=== PATIENT | female | born 2000 | race Hispanic/Latino ===

== ENCOUNTER 2024-07-21 12:25 | Emergency (ER) | payer BC, OTHER ==
[2024-07-21] MEDS ORDERED: IBUPROFEN 200 MG TAB PO ONE (12:49)
[2024-07-21] MEDS ORDERED: IBUPROFEN 400 MG TAB ONE (12:50)
--- NOTE | 2024-07-21 13:14 | RAD REPORT ---
EXAM: Chest Single View HISTORY: COUGH COMPARISON: None. FINDINGS: LUNGS/PLEURA: The lungs are clear. No pleural effusions or pneumothorax. No pulmonary edema. MEDIASTINUM: The mediastinal silhouette is within normal limits. CARDIAC: The cardiac silhouette is within normal limits. UPPER ABDOMEN: No significant abnormality. BONES: No acute abnormality. LINES/TUBES/OTHER: N/A IMPRESSION: No evidence of acute cardiopulmonary disease.
[2024-07-21 13:20] LABS: SARS-CoV-2 Antigen CONTROL BLUE LINE VIS/BG OK
[2024-07-21 13:25] LABS: SARS-CoV-2 Antigen Rapid Res Positive (Negative)
--- NOTE | 2024-07-21 13:37 | EDPHYS ---
Physician Documentation [facility] Name: Vasiliy Alegre Age: 24 yrs Sex: Female : 2000 Arrival Date: 07/21/2024 Time: 12:25 Bed 10 Private MD: ED Physician Mera Reyes HPI: 07/21 13:14 This 24 yrs old Female presents to ER via Ambulatory with complaints of Fever, sp3 Cough, Flu Symptoms. 13:14 24-year-old female with no past medical history presents with chief complaint of fever, sp3 cough, congestion, body aches for 24 hours. Possible sick contact reported. She denies headache, neck pain, neck stiffness, chest pain, shortness of breath, [place] pain, vomiting, diarrhea, rash, syncope, near syncope, travel history, or any other signs or symptoms on ROS at this time.. Historical: - Allergies: 12:41 No Known Allergies; ll1 - Home Meds: 12:41 None [Active]; ll1 - PMHx: 12:41 None; ll1 - PSHx: 12:41 None; ll1 - Immunization history:: Adult Immunizations up to date. - Social history:: Smoking status: Patient denies any tobacco usage or history of. ROS: 13:15 Eyes: Negative for injury, pain, redness, and discharge, Neck: Negative for injury, sp3 pain, and swelling, Cardiovascular: Negative for chest pain, palpitations, and edema, Abdomen/GI: Negative for abdominal pain, nausea, vomiting, diarrhea, and constipation, Back: Negative for injury and pain, MS/Extremity: Negative for injury and deformity, Skin: Negative for injury, rash, and discoloration, Neuro: Negative for headache, weakness, numbness, tingling, and seizure, Psych: Negative for depression, anxiety, suicide ideation, homicidal ideation, and hallucinations, Allergy/Immunology: Negative for hives, rash, and allergies, Endocrine: Negative for neck swelling, polydipsia, polyuria, polyphagia, and marked weight changes, Hematologic/Lymphatic: Negative for swollen nodes, abnormal bleeding, and unusual bruising, 13:15 All other systems are negative, Exam: 13:15 Constitutional: This is a well developed, well nourished patient who is awake, alert, sp3 and in no acute distress. Head/Face: Normocephalic, atraumatic. Eyes: Pupils equal round and reactive to light, extra-ocular motions intact. Lids and lashes normal. Conjunctiva and sclera are non-icteric and not injected. Cornea within normal limits. Periorbital areas with no swelling, redness, or edema. Neck: Trachea midline, no thyromegaly or masses palpated, and no cervical lymphadenopathy. Supple, full range of motion without nuchal rigidity, or vertebral point tenderness. No Meningismus. Chest/axilla: Normal chest wall appearance and motion. Nontender with no deformity. No lesions are appreciated. Cardiovascular: Regular rate and rhythm with a normal S1 and S2. No gallops, murmurs, or rubs. Normal PMI, no JVD. No pulse deficits. Respiratory: Lungs have equal breath sounds bilaterally, clear to auscultation and percussion. No rales, rhonchi or wheezes noted. No increased work of breathing, no retractions or nasal flaring. Abdomen/GI: Soft, non-tender, with normal bowel sounds. No distension or tympany. No guarding or rebound. No evidence of tenderness throughout. Back: No spinal tenderness. No costovertebral tenderness. Full range of motion. MS/ Extremity: Pulses equal, no cyanosis. Neurovascular intact. Full, normal range of motion. Neuro: Awake and alert, GCS 15, oriented to person, place, time, and situation. Cranial nerves II-XII grossly intact. Motor strength 5/5 in all extremities. Sensory grossly intact. Cerebellar exam normal. Normal gait. Psych: Awake, alert, with orientation to person, place and time. Behavior, mood, and affect are within normal limits. 13:15 ENT: Rhinorrhea, mild erythema. Vital Signs: 12:39 BP 115 / 86; Pulse 92; Resp 17; Temp 97.3; Pulse Ox 97% ; Weight 83.01 kg; Height 5 ft. hb 0 in. ; Pain 4/10; 12:39 Body Mass Index 35.74 (83.01 kg, 152.4 cm) hb 12:39 Pain Scale: Adult hb MDM: 12:40 Medical Screening Exam initiated sp3 13:15 Data reviewed: vital signs, nurses notes, lab test result(s), radiologic studies. ED sp3 course: 24-year-old female with no PMH with URI symptoms. Differential diagnosis includes viral illness, COVID-19, influenza, strep pharyngitis, bronchitis, pneumonia, among others. I have entirely suspicious of cardiac rather etiology. Workup will include general swabs, ibuprofen, and chest x-ray. Disposition probable discharge on any indicated medications.. 13:35 ED course: Chest x-ray is negative. COVID-19 rapid test is positive. We will reassure sp3 and discharge patient home with general precautions.. 07/21 12:46 Order name: Flu; Complete Time: 13:35 sp3 07/21 12:46 Order name: SARS RAPID; Complete Time: 13:35 sp3 07/21 12:46 Order name: Strep sp3 07/21 13:29 Order name: Throat Culture EDMS 07/21 12:46 Order name: CXR XRAY; Complete Time: 13:16 sp3 Administered Medications: 13:01 Drug: Ibuprofen PO 600 mg PO once Route: PO; aa5 13:30 Follow up: Response: No adverse reaction aa5 Disposition Summary: 07/21/24 13:36 Discharge Ordered Notes: Location: Home sp3 Condition: Stable sp3 Diagnosis - COVID-19, viral illness sp3 Followup: sp3 - With: Private Physician - When: Upon discharge from the Emergency Department - Reason: Recheck today's complaints, Continuance of care Discharge Instructions: - Discharge Summary Sheet sp3 - COVID-19 sp3 Forms: - Work release form aa5 - Medication Reconciliation Form sp3 - Antibiotic Education sp3 - Prescription Opioid Use sp3 - Patient Portal Instructions sp3 - Leadership Thank You Letter sp3 Signatures: Dispatcher [employer] EDMS Aura Davila RN RN aa5 Octavio Dubois RN RN ll1 Mera Reyes MD MD sp3 Corrections: (The following items were deleted from the chart) 12:47 12:46 Influenza Screen (A \T\ B)+BA.LAB.BRZ ordered. EDMS EDMS 12:47 12:46 SARS-COV-2 Antigen Rapid+I.LAB.BRZ ordered. EDMS EDMS 12:47 12:46 Group A Streptococcus Rapid Sc+BA.LAB.BRZ ordered. EDMS EDMS
--- NOTE | 2024-07-21 13:37 | ER ---
Nurse's Notes [facility] Name: Vasiliy Alegre Age: 24 yrs Sex: Female : 2000 Arrival Date: 07/21/2024 Time: 12:25 Bed 10 Private MD: Diagnosis: COVID-19, viral illness Presentation: 07/21 12:39 Chief complaint:. Chief complaint: Patient states: Cough, fever, body aches, [place], sore ll1 throat, fatigue since yesterday morning. Coronavirus screen: Client denies travel out of the [place] in the last 14 days. congestion, cough unrelated to allergies, fatigue, fever, headache, Client presents with at least one sign or symptom that may indicate coronavirus-19. Standard/surgical mask placed on the client. Ebola Screen: Patient denies travel to an Ebola-affected area in the 21 days before illness onset. Initial Sepsis Screen: Does the patient meet any 2 criteria? No. Patient's initial sepsis screen is negative. Does the patient have a suspected source of infection? No. Patient's initial sepsis screen is negative. Risk Assessment: Do you want to hurt yourself or someone else? Patient reports no desire to harm self or others. Onset of symptoms was July 20, 2024. 12:39 Method Of Arrival: Ambulatory ll1 12:39 Acuity: NASREEN 4 ll1 Triage Assessment: 12:44 General: Appears uncomfortable, Behavior is calm, cooperative, appropriate for age. ll1 General: Reports chills for feeling ill for fatigue for. Pain: Complains of pain in throat Pain currently is 4 out of 10 on a pain scale. Quality of pain is described as aching. EENT: Reports pain when swallowing. Neuro: Reports headache. Respiratory: Reports cough that is. Historical: - Allergies: 12:41 No Known Allergies; ll1 - Home Meds: 12:41 None [Active]; ll1 - PMHx: 12:41 None; ll1 - PSHx: 12:41 None; ll1 - Immunization history:: Adult Immunizations up to date. - Social history:: Smoking status: Patient denies any tobacco usage or history of. Screenin:50 [facility] ED Fall Risk Assessment (Adult) History of falling in the last 3 months, aa5 including since admission No falls in past 3 months (0 pts) Confusion or Disorientation No (0 pts) Intoxicated or Sedated No (0 pts) Impaired Gait No (0 pts) Mobility Assist Device Used No (0 pt) Altered Elimination No (0 pt) Score/Fall Risk Level 0 - 2 = Low Risk Oriented to surroundings, Maintained a safe environment, Educated pt \T\ family on fall prevention, incl call for assistance when getting out of bed. Abuse screen: Denies threats or abuse. Nutritional screening: No deficits noted. Tuberculosis screening: No symptoms or risk factors identified. Assessment: 12:50 General: Appears comfortable, Behavior is calm, cooperative, Reports chills for 12-24 aa5 hours, feeling ill for 12-24 hours, fatigue for 12-24 hours. Pain: Complains of pain in throat. Neuro: Level of Consciousness is awake, alert, obeys commands, Oriented to person, place, time, situation. Cardiovascular: Patient's skin is warm and dry. Respiratory: Reports cough Airway is patent Respiratory effort is even, unlabored, Respiratory pattern is regular, symmetrical. GI: No signs and/or symptoms were reported involving the gastrointestinal system. : No signs and/or symptoms were reported regarding the genitourinary system. EENT: Reports sore throat . Derm: Skin is pink, warm \T\ dry. Musculoskeletal: Range of motion: intact in all extremities. 13:55 Reassessment: Patient is alert, oriented x 3, equal unlabored respirations, skin aa5 warm/dry/pink. Vital Signs: 12:39 BP 115 / 86; Pulse 92; Resp 17; Temp 97.3; Pulse Ox 97% ; Weight 83.01 kg; Height 5 ft. hb 0 in. ; Pain 4/10; 12:39 Body Mass Index 35.74 (83.01 kg, 152.4 cm) hb 12:39 Pain Scale: Adult hb ED Course: 12:32 Patient arrived in ED. sj2 12:32 Mera Reyes MD is Attending Physician. sp3 12:41 Triage completed. ll1 12:42 Arm band placed on Patient placed in an exam room, on a stretcher. ll1 12:50 Aura Davila, RN is Primary Nurse. aa5 12:50 Patient has correct armband on for positive identification. Bed in low position. Call aa5 light in reach. Side rails up X 1. 12:58 COVID swab sent to lab. Flu and/or RSV swab sent to lab. Strep swab sent to lab. aa5 13:12 CXR XRAY In Process Unspecified. EDMS 13:30 No provider procedures requiring assistance completed. Patient did not have IV access aa5 during this emergency room visit. Administered Medications: 13:01 Drug: Ibuprofen PO 600 mg PO once Route: PO; aa5 13:30 Follow up: Response: No adverse reaction aa5 Medication: 13:01 VIS not applicable for this client. aa5 Outcome: 13:36 Discharge ordered by . sp3 13:55 Discharged to home ambulatory, aa5 13:55 Condition: stable 13:55 Discharge instructions given to patient, Instructed on discharge instructions, follow up and referral plans. Demonstrated understanding of instructions, follow-up care, 13:56 Patient left the ED. aa5 Signatures: Dispatcher [employer] EDMS Aura Davila RN RN aa5 Toya Rosado RN RN Octavio Dubois RN RN ll1 Mera Reyes MD MD sp3 Rhys Norman sj2 Corrections: (The following items were deleted from the chart) 12:43 12:39 BP 115 / 86; Pulse 100bpm; Resp 17bpm; Pulse Ox 97%; Temp 97.3F; 83.01 kg; Height hb 5 ft. 0 in.; BMI: 35.7; Pain 4/10, Adult; ll1 12:44 12:39 Chief complaint: Patient states: Cough, fever, body aches, [place], sore throat, ll1 fatigue for yesterday morning. ll1
[2024-07-21 14:02] VITALS: BP 115/86; TEMP 97.3; O2SAT 97
== END 2024-07-21 13:56 | disposition home or self-care (01) ==
LOC: ER 12:25
DX: U07.1 COVID-19 (principal); B34.9 Viral infection, unspecified
CPT/HCPCS: 36415; 71045; 87070; 87081; 87804; 87811; 99283